=== PATIENT | female | born 1955 | race Caucasian/White ===

== ENCOUNTER → 2021-08-02 10:52 | Outpatient (CLI) | payer MEDICARE, OTHER, SELFPAY ==
[2021-08-02 11:39] LABS: COVID19 -Nasal RAPID Negative (Negative)
== END ==
PROVIDERS: Family Provider Registered Nurse Women's Health Care, Ambulatory; PCP Family Medicine; Referring Provider Internal Medicine; Visit Provider Internal Medicine
DX: Z20.822 Contact with and (suspected) exposure to COVID-19 (principal)
CPT/HCPCS: 87635; C9803

== ENCOUNTER → 2021-08-02 10:58 | Outpatient (CLI) | payer MEDICARE, OTHER, SELFPAY ==
--- NOTE | 2021-08-08 09:32 | PM.PFT.1 ---
Pulmonary Function Test Referral & Results Date Patient Seen: 08/02/21 Requesting provider: Oliverio Gibbs Results: The spirometry demonstrates an FVC of 2.50 L which is 75% of predicted. The FEV1 was measured at 1.92 L which is 76% of predicted. The FEV1/FVC ratio was 77 which is 100% of predicted. Following the administration of bronchodilator there was a 47% improvement in FEF 25-75%. Lung volumes show an SVC of 2.49 L which is 80% of predicted. The diffusing capacity was measured at 19.96 which is 74% of predicted. No hemoglobin value was provided, so no correction for potential anemia could be made, if appropriate. The maximum voluntary ventilation was minimally reduced if at all Interpretation: This study demonstrates perhaps mild obstructive lung disease based on reduction FEV1 although FEV1/FVC ratio is preserved. There is some evidence of benefit following bronchodilator particularly small airway flow based on improvement in FEF 25-75% as above There is a minimal reduction in lung volumes suggesting mild to minimal restrictive lung disease which may well explain the abnormality in the FEV1 above There is a minimal reduction diffusing capacity suggesting the possible presence of disease at the capillary alveolar level Clinical correlation suggested
== END ==
PROVIDERS: Family Provider Registered Nurse Women's Health Care, Ambulatory; PCP Family Medicine; Referring Provider Family Medicine; Visit Provider Family Medicine
DX: J45.20 Mild intermittent asthma, uncomplicated (principal); Z72.0 Tobacco use; Z20.822 Contact with and (suspected) exposure to COVID-19
CPT/HCPCS: 87635; 94060; 94726; 94729; C9803